=== PATIENT | male | born 1955 | race Caucasian/White ===

== ENCOUNTER 2024-12-27 13:42 | Emergency (ER) | payer OTHER, SELFPAY ==
[2024-12-27 13:48] VITALS: BMI 21.6
[2024-12-27] MEDS: RABAVERT RABIES VACC W-DILUENT 2.5 UNIT IM (16:30)
--- NOTE | 2024-12-27 16:47 | ED.GENMED ---
History of Present Illness
General
Chief Complaint: Rabies
Source: patient
Exam Limitations: none
Time Seen by Provider: 12/27/24 14:21
Nursing documentation reviewed up to this point in time: agreed with
History of Present Illness
History of Present Illness:
Patient is a 69-year-old male with history of hypertension, hyperlipidemia who presents to the emergency department for rabies vaccination following exposure to bat. Patient states that they woke up and saw a bat flying around the bedroom. There
was no known bite or scratch. Patient states they were able to remove the bat from the home however were unable to trap it in order to obtain testing through the health department.
Patient has no past history of rabies vaccination. No history of vaccination reactions.
No other concerns today.
Review of Systems
Review of Systems
Allergies reviewed?: Yes
All Other Systems: ROS reviewed and negative except as documented in HPI and ROS
Phy Exam
Physical Exam
Physical Exam:
Vitals: Patient's vital signs are stable. Afebrile
General: Patient is well appearing, no acute distress
Skin: Warm and dry, no rashes or lesions
Head: Normocephalic, atraumatic
Throat: Protecting airway
Neck: Normal ROM.
Cardiac: Regular rate
Pulm: No apparent respiratory distress
Abdomen: Nondistended
Extremities: No evidence of cyanosis or edema
Neuro: Grossly intact
Psychiatric: Normal affect.
Course
Orders/Labs/Results
Orders:
Orders
12/27/24 15:37
Rabies Immune Globulin/Pf [HyperRAB] 1,072 unit IM NOW STA
12/27/24 15:45
Rabies Vaccine (Pcec)/Pf [Rabavert Rabies Vacc W-Diluent] 2.5 unit IM .ONCE ONE
Vital Signs
Initial and Last Documented VS:
Initial Vital Signs
Temp Pulse Resp BP Pulse Ox
97.9 F 77 18 116/71 99
12/27/24 16:55 12/27/24 16:55 12/27/24 16:55 12/27/24 16:55 12/27/24 16:55
Last Documented Vital Signs
Temp Pulse Resp BP Pulse Ox
97.9 F 77 18 116/71 99
12/27/24 16:55 12/27/24 16:55 12/27/24 16:55 12/27/24 16:55 12/27/24 18:20
MDM/Problems Addressed
Differential Diagnosis Includes:
Not limited to: Need for rabies prophylaxis, etc
MDM/Problems Addressed:
69-year-old male presenting for rabies vaccination series after bat exposure at home. No known bite or scratch however unable to trap the bat to have tested with health department. No prior history of rabies vaccination series. Shared decision
making utilized with patient and decision was made to pursue vaccination series.
Rabies immunoglobulin and dose number one of the rabies vaccine administered in the emergency department today. Patient tolerated injections well. Lengthy discussion regarding remainder of vaccination series which can be done in emergency
department or infusion clinic. Strict return precautions discussed. Patient stable for discharge.
Chronic conditions affecting care:
N/A
Acute Exacerbation and/or Progression of Chronic Illness:
N/A
*Pulse Oximetry
SaO2: 99
Patient hypoxic: no
*EKG
Interpreted by ED Provider?: NA
*Vp Scientific Interpretation
Rate: Vp Scientific- N/A
*Critical Care Note
Total Time (30-74mins, 75-104mins- exclusive of procedures): Not Applicable
ED Attending Note
-
Portions of this chart may have been created with voice recognition software.� Occasional wrong word or��sound alike� substitutions may have occurred due to the inherent limitations of voice recognition software.
Discharge Plan
Departure
Patient Disposition: Home (Routine Discharge)
Date of Disposition: 12/27/24
Time of Disposition: 16:47
Patient with high blood pressure during this ER visit?: Yes
Condition: Good
Discharge Problem:
Rabies, need for prophylactic vaccination against
Instructions: BLOOD PRESSURE, Rabies
Prescriptions:
New
RabAvert (PF) 2.5 unit suspension for reconstitution
2.5 unit IM ONCE Qty: 3 0RF
Rx Instructions:
Inject 1mL on 12/30/24, 01/03/25, and 01/10/25
Referrals:
PRIVATE,PHYSICIAN [Family Provider, Internal Medicine]
Stand Alone Forms: Rabies Vaccine Post Exp Dosing
Activity Restrictions/Additional Instructions:
RETURN TO THE EMERGENCY DEPARTMENT WITH ANY SIGNIFICANT REDNESS, SWELLING, OR PAIN AROUND INJECTION SITE, NEW RASH, OR ANY OTHER CONCERNS
- You were given the rabies immunoglobulin and dose #1 of the rabies vaccination in the emergency department today. As discussed�this is a 4 dose series and you will require additional doses on 12/30/24, 01/03/25, and 01/10/25. It is important to
complete this series. These can be given in the infusion clinic or the emergency department. The infusion clinic will likely be closed on holidays and may not accommodate pediatric patients. Please hold onto the prescription you were given today
as you may require it at the infusion clinic.
- Follow-up with your PCP as needed for further evaluation/management
Monitor your symptoms closely and return to the emergency department with any acute worsening/new symptoms or any other concerns
Interventions
Interventions:
*Risk Screen - Suicide Last Done: 12/27/24 13:46
*General Assessment Last Done: 12/27/24 13:46
*Neglect/Abuse Screening Last Done: 12/27/24 17:15
*ED- Fall Risk Assessment Last Done: 12/27/24 17:15
*ED COVID-19 Vaccine History Last Done: 12/27/24 17:15
*Nursing Disposition Last Done: 12/27/24 17:15
Discharge Date and Time
Discharge Date/Time: 12/27/24 17:16
Print Language: SINHALA
[2024-12-27 16:55] VITALS: BP 116/71
== END 2024-12-27 17:16 | disposition home or self-care (01) ==
LOC: EMR 13:42
PROVIDERS: EMERGENCY PHYSICIAN Emergency Medicine
DX: Z20.3 Contact with and (suspected) exposure to rabies (principal); Z23 Encounter for immunization; Z29.14 Encounter for prophylactic rabies immune globulin
CPT/HCPCS: 96372; 90471; 99284; 90375; 90675

== ENCOUNTER 2024-12-30 08:24 | Emergency (ER) | payer OTHER, SELFPAY ==
[2024-12-30 08:27] VITALS: BP 118/91
[2024-12-30 08:57] VITALS: BMI 21.1
--- NOTE | 2024-12-30 09:00 | ED.GENMED ---
History of Present Illness
General
Chief Complaint: Rabies
Source: patient
Time Seen by Provider: 12/30/24 08:54
History of Present Illness
History of Present Illness:
69-year-old male presenting to the ER for second rabies vaccine. Patient is without any concerns. He will return to the ER in 4 days for third vaccine.
Past History
Past History
ED Past Medical History: HTN and Hypercholesterolemia
ED Past Surgical History: None
Social History
Tobacco: Non-smoker
Alcohol: None
Drug: None
Personal:
Living: with family
Review of Systems
Review of Systems
All Other Systems: ROS reviewed and negative except as documented in HPI and ROS
Phy Exam
Physical Exam
Physical Exam:
GENERAL: Alert , in no apparent distress
EYE: conjunctiva clear
Head: Normocephalic atraumatic
NECK: Supple,
ENT: mmm.
LUNGS: no acute respiratory distress
NEUROLOGICAL: Alert and oriented
SKIN: Warm and dry, skin intact.
MUSCULOSKELETAL: well perfused.
PSYCH: Normal and appropriate interaction.
Scores
Heart Failure Risk
Heart Failure Risk Score: Not Applicable
Heart Score for Chest Pain Patients
STEMI patient?: Not applicable
Withdrawal Assessment of Alcohol
Withdrawal Assessment Completed?: Not applicable
Course
Orders/Labs/Results
Orders:
Orders
12/30/24 09:30
Rabies Vaccine (Pcec)/Pf [Rabavert Rabies Vacc W-Diluent] 2.5 unit IM .ONCE ONE
Vital Signs
Initial and Last Documented VS:
Initial Vital Signs
Temp Pulse Resp BP Pulse Ox
98.3 F 85 20 118/91 96
12/30/24 08:27 12/30/24 08:27 12/30/24 08:27 12/30/24 08:27 12/30/24 08:27
Last Documented Vital Signs
Temp Pulse Resp BP Pulse Ox
98.3 F 85 20 118/91 96
12/30/24 08:27 12/30/24 08:27 12/30/24 08:27 12/30/24 08:27 12/30/24 09:01
MDM/Problems Addressed
MDM/Problems Addressed:
69-year-old male presenting to the ER for second rabies vaccine. Will return to the ER for third vaccine days. Aware of return precautions. Stable for discharge.
*Pulse Oximetry
SaO2: 96
Oxygen Mode of Delivery: Room air
Patient hypoxic: no
*Critical Care Note
Total Time (30-74mins, 75-104mins- exclusive of procedures): Not Applicable
ED Attending Note
-
Portions of this chart may have been created with voice recognition software.� Occasional wrong word or��sound alike� substitutions may have occurred due to the inherent limitations of voice recognition software.
Discharge Plan
Departure
Patient Disposition: Home (Routine Discharge)
Date of Disposition: 12/30/24
Time of Disposition: 09:00
Patient with high blood pressure during this ER visit?: No
Discharge Problem:
Encounter for immunization
Prescriptions:
No Action
RabAvert (PF) 2.5 unit suspension for reconstitution
2.5 unit IM ONCE Qty: 3 0RF
Rx Instructions:
Inject 1mL on 12/30/24, 01/03/25, and 01/10/25
Referrals:
PRIVATE,PHYSICIAN [Family Provider, Internal Medicine]
Stand Alone Forms: Rabies Vaccine Post Exp Dosing
Interventions
Interventions:
*Risk Screen - Suicide Last Done: 12/30/24 08:27
*General Assessment Last Done: 12/30/24 08:27
*Neglect/Abuse Screening Last Done: 12/30/24 09:01
Discharge Date and Time
Print Language: MOLDOVAN
[2024-12-30] MEDS: RABAVERT RABIES VACC W-DILUENT 2.5 UNIT IM (09:38)
== END 2024-12-30 09:44 | disposition home or self-care (01) ==
LOC: EMR 08:24
PROVIDERS: EMERGENCY PHYSICIAN Emergency Medicine
DX: Z23 Encounter for immunization (principal); Z20.3 Contact with and (suspected) exposure to rabies; E78.00 Pure hypercholesterolemia, unspecified; I10 Essential (primary) hypertension
CPT/HCPCS: 99281; 90471; 90675

== ENCOUNTER 2025-01-10 15:09 | Outpatient (RCR) | payer OTHER, SELFPAY ==
[2025-01-03 15:37] VITALS: BP 127/79
[2025-01-03] MEDS: RABAVERT RABIES VACC W-DILUENT 2.5 UNIT IM (15:52)
[2025-01-10 15:15] VITALS: BP 136/77
[2025-01-10] MEDS: RABAVERT RABIES VACC W-DILUENT 2.5 UNIT IM (15:19)
== END 2025-01-13 08:41 | disposition home or self-care (01) ==
LOC: OID 15:09
PROVIDERS: ATTENDING PHYSICIAN Emergency Medicine
DX: Z20.3 Contact with and (suspected) exposure to rabies (principal); Z23 Encounter for immunization
CPT/HCPCS: 90471; 90675